=== PATIENT | male | born 2000 | race Caucasian/White ===

== ENCOUNTER 2024-07-17 14:05 | Emergency (ER) | payer OTHER ==
[~2024-07-17] VITALS: Ht 180.3 cm; Wt 86.2 kg
[2024-07-17] MEDS ORDERED: OXYACE7.5T PO (16:14)
[2024-07-17] MEDS ORDERED: CEFU500T30 PO (16:14)
== END 2024-07-17 16:35 | disposition home or self-care (01) ==
LOC: ER 14:05
DX: S02.40FA Zygomatic fracture, left side, initial encounter for closed fracture (principal); S43.102A Unspecified dislocation of left acromioclavicular joint, initial encounter; V86.55XA Driver of 3- or 4- wheeled all-terrain vehicle (ATV) injured in nontraffic accident, initial encounter
CPT/HCPCS: 70450; 71046; 73030; 93005; 93010; 99284-25